=== PATIENT | female | born 1975 | race Caucasian/White ===

== ENCOUNTER 2022-04-29 09:56 | Outpatient (CLI) | payer OTHER, SELFPAY ==
--- NOTE | 2022-04-29 10:07 | MM_ITS ---
WS: [id number] VIEWS: MLO and CC views both breasts. 3D digital tomosynthesis is also included in this exam. Baseline study Findings: 6 mm lobulated nodule seen in the medial posterior right breast at about nipple level. This is only s een on the cc view. Regional ultrasound as well as a 90 degree lateral view of the right breast would be indicated for further workup. No suspicious finding seen in the left breast. Bilateral intramamma ry lymph nodes identified. No architectural distortion or suspicious calcification in either breast. Scattered fibroglandular densities noted. MM/[place] [id number] Impression: BI-RADS: 0-Incomplete: Need additional imaging evaluation FOLLOW-UP: See Report This mammogram was also analyzed by the Computer Aided Detection System R2 [employer].
== END 2022-04-29 09:57 | disposition home or self-care (01) ==
LOC: RAD 09:57
PROVIDERS: PCP Family Medicine; Visit Provider Family Medicine
DX: Z12.31 Encounter for screening mammogram for malignant neoplasm of breast (principal)
CPT/HCPCS: 77063; 77067

== ENCOUNTER 2022-06-09 08:28 | Outpatient (CLI) | payer OTHER, SELFPAY ==
--- NOTE | 2022-06-09 08:39 | MM_ITS ---
WS: [id number] ADDITIONAL VIEWS RIGHT MAMMOGRAM WITH DIGITAL BREAST TOMOSYNTHESIS. HISTORY: ABNORMAL MAMMO COMPARISON: 04/29/2022 RIGHT MAMMOGRAM: Spot compression views and true ML with digital breast tomosynthesis and SM. The nodule seen in the medial posterior RIGHT breast is not reproducible. No nodule is identified tod ay. This was probably a small lymph node that has since resolved. There are no suspicious findings. MM/[place] [id number] IMPRESSION: BI-RADS: 2-Benign FOLLOW UP: 1 Year Follow-up Nodule described in the medial RIGHT breast is no longer present on the follow- up imaging.
== END 2022-06-09 08:29 | disposition home or self-care (01) ==
LOC: RAD 08:29
PROVIDERS: PCP Family Medicine; Visit Provider Family Medicine
DX: R92.8 Other abnormal and inconclusive findings on diagnostic imaging of breast (principal)
CPT/HCPCS: 77061; G0279